=== PATIENT | male | born 1980 | race Caucasian/White ===

== ENCOUNTER 2017-06-04 20:41 | Emergency (ER) | payer BC, OTHER ==
[2017-06-04 20:58] VITALS: BP 138/89
--- NOTE | 2017-06-04 21:24 | EDPHY ---
H & P Stated Complaint: R HIP INJ/FALLING OFF HORSE 4P Time Seen by Provider: 06/04/17 21:09 HPI/ROS: CHIEF COMPLAINT: HISTORY OF PRESENT ILLNESS: 36-year-old male arrives via private vehicle complaining of right hip pain after he fell off of a horse several hours ago. He was able to get back up and continue riding and then when he fell with hopped off of the horse later on he felt right hip and inguinal pain.. He did sustain multiple abrasions. He denies head injury. Denies straddle injury. Denies testicular injury. Denies back or flank pain. Denies discoloration of urine. Denies abdominal pain. Denies nausea or vomiting. Denies chest pain. Denies dyspnea. REVIEW OF SYSTEMS: A ten point review of systems was performed and is negative with the exception of the items mentioned in the HPI PAST MEDICAL/SURGICAL HISTORY: no anticoagulant use, no relevant medical/ surgical history SOCIAL HISTORY: denies alcohol use at time of incident PHYSICAL EXAM 1) GENERAL: Well-developed, well-nourished, alert and oriented. Appears to be in no acute distress. Answering questions appropriately. 2) HEAD: Normocephalic, atraumatic 3) HEENT: Pupils equal, round, reactive to light bilaterally. Negative Horners. Nasopharynx, oropharynx, clear. No deformity or angulation of nose. No septal hematoma. No rhinorrhea. No oral trauma. Ears bilaterally with normal tympanic membranes. No hemotympanum. No fluid or blood in the external auditory canal. No raccoon eyes. No Bocanegra sign. Teeth are normally aligned with no gross malocclusion, TMJ bilaterally nontender, facial bones nontender including the zygomatic arch, maxilla mandible. 4) NECK: No cervical collar is on. Posterior cervical spine is nontender, no stepoff, no effusion. Full range of motion which does not elicit any midline cervical spine pain, no posterior midline tenderness, no step-off. 5) LUNGS: . Clear to auscultation bilaterally, no wheezes, no rhonchi, no retractions. No obvious signs of trauma. No chest wall pain. No flaring, no grunting. Moving symmetrically. No crepitus. 6) HEART: [Regular rate and rhythm, 7) ABDOMEN: No guarding, no rebound, no focal tenderness, no peritoneal signs, no signs of trauma, no ecchymosis, no mass. I am unable to elicit any abdominal pain. 8) MUSCULOSKELETAL: Right lower extremity: No visible signs of trauma, no shortening no malrotation. Pain with palpation of the acetabulum. Distal DP PT pulses present and brisk. No crepitus. Moving all extremities, no focal areas of tenderness, no obvious trauma. 9) BACK: Multiple abrasions to the backNo midline vertebral tenderness, no fluctuance, no step-off, no obvious trauma, no visual or palpable abnormality. 10) SKIN: No laceration. 11) : Normal male external genitalia, no urethral discharge or blood at the urethral meatus. Bilateral testicles nontender. No evidence of trauma. No hematoma. DIFFERENTIAL DIAGNOSIS: In no particular include but limited to fracture, sprain , strain, dislocation, blunt abdominal trauma - Personal History Current Tetanus Diphtheria and Acellular Pertussis (TDAP): Yes Tetanus Vaccine Date: 2011 - Medical/Surgical History Hx Asthma: No Hx Chronic Respiratory Disease: No Hx Diabetes: No Hx Cardiac Disease: No Hx Renal Disease: No Hx Cirrhosis: No Hx Alcoholism: No Hx HIV/AIDS: No Hx Splenectomy or Spleen Trauma: No Other PMH: AMOR ARM FX - Social History Smoking Status: Never smoked Constitutional: Initial Vital Signs Temperature (C) 36.9 C 06/04/17 20:55 Heart Rate 81 06/04/17 20:55 Respiratory Rate 16 06/04/17 20:55 Blood Pressure 138/89 H 06/04/17 20:55 O2 Sat (%) 98 06/04/17 20:55 O2 Delivery Mode Room Air Allergies/Adverse Reactions: Penicillins Allergy (Verified 06/04/17 20:54) Home Medications: Medication Instructions Recorded NK [No Known Home Meds] 06/04/17 Medical Decision Making - Diagnostics Imaging Results: Imaging Impressions Hip X-Ray 06/04/17 21:17 Impression: 1. No acute abnormality seen about the pelvis with attention right hip. 2. Mild degenerative changes about the hips bilaterally with hip joint space narrowing and marginal osteophytes. Pelvis CT 06/04/17 21:51 Impression: 1. No acute osseous abnormality seen about the pelvis. 2. Mild hip joint space narrowing bilaterally. 3. No significant pelvic hematoma. Findings discussed with Armand Mcgee PAC at 22:37 hour, 06/04/2017. Images reviewed myself ED Course/Re-evaluation: 9:52 p.m.: Patient complains of right inguinal pain reproducible range of motion. Patient's x-ray showed no gross osseous abnormality. Because of his continued complaints of recommended CT imaging of the pelvis to evaluate for occult fracture. Indications risks benefits discussed with patient he consents. Patient was re-evaluated with serial examinations. Discussed his negative CT imaging with results with him as well. He has been informed that non osseous injury, such as labral tear, is not ruled out. I do not think that emergent MRI is indicated however I have stressed the importance of following up with Orthopedics as he may necessitate outpatient MRI. He feels comfortable being discharged verbalized understanding of his discharge instructions. Usual and customary orthopedic precautions and instructions provided. Care of patient under supervision of secondary supervising physician Dr Crouch . - Data Points Medications Given: Discontinued Medications Hydrocodone Bitart/Acetaminophen ([place] 5/325mg Prepack#6) 1 btl TAKEHOME EDNOW ONE Stop: 06/04/17 22:56 Last Admin: 06/04/17 23:03 Dose: 1 btl Departure - Departure Disposition: Home, Routine, Self-Care Clinical Impression: Acute right hip pain Fall from horse Qualifiers: Encounter type: initial encounter Qualified Code(s): V80.010A - Animal-rider injured by fall from or being thrown from horse in noncollision accident, initial encounter Condition: Good Instructions: Hydrocodone/Acetaminophen (By mouth), Hip Sprain (ED) Additional Instructions: Return to the ER immediately if you experience discoloration, have worsening pain, numbness, tingling, or any other symptoms that concern you. If you received x-rays in the emergency department today, be advised, that ligamentous , tendon, muscular, and other non-bony injury cannot be fully ruled out. Try to keep your affected extremity elevated above the level of your chest, and keep cold packs on the affected area, for the next 48 hours. Referrals: Stephan Bennett MD [Medical Doctor] - 1-2 days without fail (Dr. Bennett is an orthopedic surgeon)
[2017-06-04] MEDS ORDERED: HYDROCOD/APAP 5/325 PREPACK#6 BTL TAKEHOME ONE (22:55)
== END 2017-06-04 23:05 | disposition home or self-care (01) ==
DX: S79.911A Unspecified injury of right hip, initial encounter (principal); V80.010A Animal-rider injured by fall from or being thrown from horse in noncollision accident, initial encounter; Y99.8 Other external cause status; Y93.52 Activity, horseback riding